=== PATIENT | male | born 1960 | race Caucasian/White ===

== ENCOUNTER 2016-11-15 17:10 | Emergency (ER) | payer MEDICARE, MEDICAID ==
[2016-11-15 17:24] VITALS: BP 150/84
[2016-11-15] MEDS ORDERED: Azithromycin TAB* 250 MG PO ONE (18:37)
--- NOTE | 2016-11-15 19:23 | UC ---
Throat Pain/Nasal José Manuel HPI - HPI Summary HPI Summary: TWO DAYS AGO USED QTIP IN RIGHT EAR, FELT PAIN AFTERWARDS. ALSO FOR LAST TWO DAYS HAS HAD SWELLING IN THROAT WITH TENDERNESS IN SWALLOWING. PATIENT IS ABLE TO KEEP FOODS AND LIQUIDS DOWN. - History of Current Complaint Chief Complaint: UCRespiratory Stated Complaint: SINUS/RT EAR PAIN/FEELS LIKE FB THROAT Time Seen by Provider: 11/15/16 17:54 Hx Obtained From: Patient Onset/Duration: Gradual Onset, Lasting Days, Still Present Severity: Mild Pain Intensity: 4 Pain Scale Used: 0-10 Numeric Cough: None Associated Signs & Symptoms: Positive: Dysphagia, Hoarseness - Epiglottits Risk Factors Epiglottis Risk Factors: Negative - Allergies/Home Medications Allergies/Adverse Reactions: Allergies Allergy/AdvReac Type Severity Reaction Status Date / Time Penicillins [PCN] Allergy Mild Rash Verified 11/15/16 17:23 Warfarin [From Coumadin] Allergy Mild Rash Verified 11/15/16 17:23 Home Medications: Home Medications FLUoxetine CAP* [PROzac CAP*] 60 mg PO DAILY 11/15/16 [History Confirmed ] PMH/Surg Hx/FS Hx/Imm Hx Previously Healthy: Yes Endocrine History Of: Reports: Diabetes - but now controlled with diet Cardiovascular History Of: Reports: Hypertension - ON MEDS Denies: Cardiac Disorders, Pacemaker/ICD Respiratory History Of: Denies: Asthma GI/ History Of: Reports: Renal Disease Cancer History Of: Denies: Prostate Cancer - Surgical History Surgical History: Yes Surgery Procedure, Year, and Place: KIDNEY [place]. cholecystectomy, hernia repair, appy, neck sx - Family History Known Family History: Negative: Respiratory Disease - Social History Occupation: Employed Full-time Lives: With Family Alcohol Use: None Substance Use Type: None Smoking Status (MU): Former Smoker Type: Cigarettes Have You Smoked in the Last Year: No When Did the Patient Quit Smoking/Using Tobacco: 12-13 years ago Review of Systems Constitutional: Negative Skin: Negative Eyes: Negative ENT: Sore Throat, Ear Ache Respiratory: Negative Cardiovascular: Negative Gastrointestinal: Negative Genitourinary: Negative Motor: Negative Neurovascular: Negative Musculoskeletal: Negative Neurological: Negative Psychological: Negative All Other Systems Reviewed And Are Negative: Yes Physical Exam Triage Information Reviewed: Yes Appearance: Well-Appearing, No Pain Distress, Well-Nourished Vital Signs: Initial Vital Signs Temp 97.5 F 11/15/16 17:18 Pulse 78 11/15/16 17:18 Resp 16 11/15/16 17:18 BP 150/84 11/15/16 17:18 Pulse Ox 97 11/15/16 17:18 Vital Signs Reviewed: Yes Eye Exam: Normal Eyes: Positive: Conjunctiva Clear ENT: Positive: Pharynx normal, TM dull, Other: - CERUMEN IMPACTION RIGHT EAR Dental: Positive: Cervical Lymphadenopathy - ANTERIOR CERVIAL LN BILATERALLY Neck: Positive: Supple, Tenderness @ - ANT CERVICAL LN BILATERALLY, Enlarged Nodes @ - ANTERIOR CERVICAL LN BILATERALLY Respiratory Exam: Normal Respiratory: Positive: Chest non-tender, Lungs clear, Normal breath sounds, No respiratory distress, No accessory muscle use Cardiovascular Exam: Normal Cardiovascular: Positive: RRR, No Murmur, Pulses Normal, Brisk Capillary Refill Abdominal Exam: Normal Abdomen Description: Positive: Nontender, No Organomegaly Musculoskeletal Exam: Normal Musculoskeletal: Positive: Strength Intact, ROM Intact, No Edema Neurological Exam: Normal Psychological Exam: Normal Psychological: Positive: Normal Response To Family Skin Exam: Normal Throat Pain/Nasal Course/Dx - Differential Dx/Diagnosis Differential Diagnosis/HQI/PQRI: Otitis Media, Pharyngitis, Sinusitis, Tonsillitis, URI Provider Diagnoses: RIGHT CERUMEN IMPACTION. PHAYNGITIS/CERVICAL LYMPHADENOPATHY Discharge - Discharge Plan Condition: Stable Disposition: HOME Prescriptions: Azithromycin TAB* [Zithromax TAB (Z-FLETCHER) 250 mg #6 tabs] 250 mg PO DAILY #4 tab Patient Education Materials: Sinusitis (ED), Cerumen Impaction (ED), Lymphadenopathy (ED) Referrals: Mk Miller MD [Primary Care Provider] -
== END 2016-11-15 18:49 | disposition home or self-care (01) ==
LOC: UCCORT 17:10
DX: H61.21 Impacted cerumen, right ear (principal); J02.9 Acute pharyngitis, unspecified; R59.1 Generalized enlarged lymph nodes; Z88.0 Allergy status to penicillin; Z88.8 Allergy status to other drugs, medicaments and biological substances; Z87.891 Personal history of nicotine dependence
CPT/HCPCS: 99213; A9270-GY; G0463

== ENCOUNTER 2017-02-28 20:32 | Emergency (ER) | payer MEDICARE, MEDICAID ==
[2017-02-28 20:51] VITALS: BP 129/78
--- NOTE | 2017-02-28 20:59 | UC ---
Respiratory Complaint HPI - HPI Summary HPI Summary: "Cough sudden onset today, Head congestion, sore throat ". Sx just started a few hours ago. dry cough. no congestion. no sinus pain. no fever. no wheezing. stopped smoking 14 yrs ago. no copd. - History of Current Complaint Chief Complaint: UCRespiratory Stated Complaint: UPPER RESPIRATORY Time Seen by Provider: 02/28/17 20:57 - Allergies/Home Medications Allergies/Adverse Reactions: Allergies Allergy/AdvReac Type Severity Reaction Status Date / Time Penicillins [PCN] Allergy Mild Rash Verified 02/28/17 20:51 Warfarin [From Coumadin] Allergy Mild Rash Verified 02/28/17 20:51 PMH/Surg Hx/FS Hx/Imm Hx Previously Healthy: Yes Cardiovascular History: Hypertension GI/ History: Renal Disease - solitary kidney, gout. Psychological History: Anxiety - Surgical History Surgical History: Yes Surgery Procedure, Year, and Place: KIDNEY [place]. cholecystectomy, hernia repair, appy, neck sx - Family History Known Family History: Negative: Respiratory Disease - Social History Alcohol Use: None Substance Use Type: None Smoking Status (MU): Former Smoker Type: Cigarettes Have You Smoked in the Last Year: No When Did the Patient Quit Smoking/Using Tobacco: 12-13 years ago Review of Systems Constitutional: Negative Skin: Negative Eyes: Negative ENT: Negative Respiratory: Cough Cardiovascular: Negative Gastrointestinal: Negative Genitourinary: Negative Motor: Negative Neurovascular: Negative Musculoskeletal: Negative Neurological: Negative Psychological: Negative All Other Systems Reviewed And Are Negative: Yes Physical Exam Triage Information Reviewed: Yes Appearance: Well-Appearing, No Pain Distress, Well-Nourished Vital Signs: Initial Vital Signs Temp 98.4 F 02/28/17 20:43 Pulse 88 02/28/17 20:43 Resp 18 02/28/17 20:43 BP 129/78 02/28/17 20:43 Pulse Ox 98 02/28/17 20:43 Vital Signs Reviewed: Yes Eye Exam: Normal ENT Exam: Normal ENT: Positive: Pharynx normal, TMs normal, Other: - no frontal or maxillary tenderness. Negative: Tonsillar swelling, Tonsillar exudate, Muffled/hoarse voice Neck exam: Normal Neck: Positive: Supple, Nontender, No Lymphadenopathy Respiratory Exam: Normal Respiratory: Positive: Chest non-tender, Lungs clear, Normal breath sounds, No respiratory distress, No accessory muscle use. Negative: Crackles, Rhonchi, Stridor, Wheezing Cardiovascular Exam: Normal Cardiovascular: Positive: RRR, No Murmur, Pulses Normal, Brisk Capillary Refill Abdominal Exam: Normal Musculoskeletal Exam: Normal Neurological Exam: Normal Psychological Exam: Normal Skin Exam: Normal UC Diagnostic Evaluation - Laboratory O2 Sat by Pulse Oximetry: 98 Respiratory Course/Dx - Differential Dx/Diagnosis Differential Diagnosis/HQI/PQRI: Bronchitis, Lower Resp Infection, Sinusitis, Other Provider Diagnoses: Viral URI Discharge - Discharge Plan Condition: Stable Disposition: HOME Patient Education Materials: Viral Syndrome (ED) Referrals: Mk Miller MD [Primary Care Provider] - 3 Days Additional Instructions: There are no signs of bacterial infection at this time. Drink lots of fluid and rest.
== END 2017-02-28 21:23 | disposition home or self-care (01) ==
LOC: UCCORT 20:32
DX: J06.9 Acute upper respiratory infection, unspecified (principal); Z88.0 Allergy status to penicillin; Z88.8 Allergy status to other drugs, medicaments and biological substances; Z87.891 Personal history of nicotine dependence
CPT/HCPCS: 99211; G0463

== ENCOUNTER 2017-03-02 12:12 | Emergency (ER) | payer MEDICARE, MEDICAID ==
[2017-03-02 12:59] VITALS: BP 101/68
--- NOTE | 2017-03-02 15:01 | UC ---
Respiratory Complaint HPI - HPI Summary HPI Summary: Patient is a 57yo M with a history of sinusitis presents with 4 day history of worsening sinus pressure, pain, RUVALCABA, rhinorrhea and cough with production. He denies SOB or chest pain or pressure. He wears a CPAP and cough is productive with green sputum and worse during the morning and late at night. Worse with recumbent position and better with orthostasis. Patient has a history of kidney CA with nephrectomy. He is being followed for symptoms. - History of Current Complaint Chief Complaint: UCRespiratory Stated Complaint: SINUS PRESSURE,SORE THROAT Time Seen by Provider: 03/02/17 12:35 Hx Obtained From: Patient Onset/Duration: Sudden Onset Timing: Constant Severity Initially: Moderate Severity Currently: Moderate Pain Intensity: 6 Pain Scale Used: 0-10 Numeric Character: Cough: Nonproductive Alleviating Factors: Upright Position Associated Signs And Symptoms: Positive: URI, Nasal Congestion, Hoarseness, Sinus Discomfort - Risk Factors Pulmonary Embolism Risk Factors: Negative Cardiac Risk Factors: Negative Pseudomonas Risk Factors: Bronchiectasis Tuberculosis Risk Factors: Negative - Allergies/Home Medications Allergies/Adverse Reactions: Allergies Allergy/AdvReac Type Severity Reaction Status Date / Time Penicillins [PCN] Allergy Mild Rash Verified 03/02/17 12:52 Warfarin [From Coumadin] Allergy Mild Rash Verified 03/02/17 12:52 Amoxicillin Allergy Blisters Verified 03/02/17 13:40 Home Medications: Home Medications Testosterone [EC-Rx Testosterone 0.2%] 0.2 % TD DAILY 03/02/17 [History Confirmed 03/02/17] PMH/Surg Hx/FS Hx/Imm Hx Previously Healthy: No - kidney CA - Surgical History Surgical History: Yes Surgery Procedure, Year, and Place: KIDNEY [place]. cholecystectomy, hernia repair, appy, neck sx - Family History Known Family History: Negative: Respiratory Disease - Social History Occupation: Employed Full-time Lives: With Family Alcohol Use: None Substance Use Type: None Smoking Status (MU): Former Smoker Type: Cigarettes Have You Smoked in the Last Year: No When Did the Patient Quit Smoking/Using Tobacco: 14 years ago Review of Systems Constitutional: Negative ENT: Sore Throat, Ear Ache, Nasal Discharge Respiratory: Cough Cardiovascular: Negative Gastrointestinal: Negative Motor: Negative Neurovascular: Negative Musculoskeletal: Negative Neurological: Negative All Other Systems Reviewed And Are Negative: Yes Physical Exam Triage Information Reviewed: Yes Appearance: Well-Appearing, No Pain Distress, Well-Nourished Vital Signs: Initial Vital Signs Temp 99.9 F 03/02/17 12:53 Pulse 88 03/02/17 12:53 Resp 20 03/02/17 12:53 BP 101/68 03/02/17 12:53 Pulse Ox 98 03/02/17 12:53 Vital Signs Reviewed: Yes Eye Exam: Normal Eyes: Positive: Conjunctiva Clear ENT: Positive: Pharynx normal, Nasal congestion, Nasal drainage Dental Exam: Normal Neck exam: Normal Neck: Positive: Supple, No Lymphadenopathy Respiratory Exam: Normal Respiratory: Positive: Chest non-tender, Lungs clear Cardiovascular Exam: Normal Cardiovascular: Positive: RRR Musculoskeletal Exam: Normal Musculoskeletal: Positive: Strength Intact Psychological Exam: Normal Psychological: Positive: Normal Response To Family Skin Exam: Normal Diagnostic Evaluation - Laboratory O2 Sat by Pulse Oximetry: 98 Respiratory Course/Dx - Course Course Of Treatment: Patient presents to with sinus symptoms, pressure and pain. Worse with sleeping and CPAP machine. Hx of sinusitis. Mucous production with cough. Also c/o itchy eyes, and sneezing. Will rx claritin, doxycycline for sinus pressure and pain on percussion as well as Mucinex. Patient agrees with discharge and will follow up as needed. - Differential Dx/Diagnosis Differential Diagnosis/HQI/PQRI: Asthma, Laryngitis, Lower Resp Infection, Sinusitis Provider Diagnoses: Sinusitis Discharge - Discharge Plan Condition: Stable Disposition: HOME Prescriptions: DOXYcycline CAP(*) [DOXYcycline 100MG CAP(*)] 100 mg PO BID #20 cap Loratadine [Claritin 10 MG CAP] 10 mg PO DAILY #15 cap guaiFENesin ER TAB [Mucinex*] 600 mg PO BID #20 tab.er Patient Education Materials: Sinusitis (ED), Warm Compress or Soak (ED) Referrals: Mk Miller MD [Primary Care Provider] - Additional Instructions: Follow up with PCP Augmentin twice daily for 10 days Claritin during the day until symptoms resolve Flonase will help symptoms Mucinex twice daily
== END 2017-03-02 13:49 | disposition home or self-care (01) ==
LOC: UCCORT 12:12
DX: J01.90 Acute sinusitis, unspecified (principal); Z87.891 Personal history of nicotine dependence; Z85.528 Personal history of other malignant neoplasm of kidney; Z90.5 Acquired absence of kidney
CPT/HCPCS: 99212; G0463

== ENCOUNTER 2017-09-14 10:02 | Emergency (ER) | payer MEDICARE, MEDICAID ==
[2017-09-14 10:24] VITALS: BP 135/73
--- NOTE | 2017-09-14 10:56 | UC ---
Hand/Wrist HPI - HPI Summary HPI Summary: 57 yo gentleman c/o approx 2 months ongoing L thumb pain. Initial wounding event attributes to an injury at that time, son accidently hit dorsal proximal thumb with hammer. However, he notes that lately he has been waking up with both hands painful in the morning. No p/d/w. Hurts to fully abduct, extend, and flex to full "ok" sign. No current redness / swelling c/w opposite thumb. Pt is R handed. Works a lot with hands. Pain is worse at night, better with elevation. Does occasionally drop things. No neck c/o's. - History Of Current Complaint Chief Complaint: UCUpperExtremity Stated Complaint: LEFT THUMB INJ Time Seen by Provider: 09/14/17 10:36 Hx Obtained From: Patient - Allergies/Home Medications Allergies/Adverse Reactions: Allergies Allergy/AdvReac Type Severity Reaction Status Date / Time Penicillins [PCN] Allergy Mild Rash Verified 09/14/17 10:24 Warfarin [From Coumadin] Allergy Mild Rash Verified 09/14/17 10:24 Amoxicillin Allergy Blisters Verified 09/14/17 10:24 PMH/Surg Hx/FS Hx/Imm Hx Previously Healthy: Yes - Surgical History Surgical History: Yes Surgery Procedure, Year, and Place: KIDNEY [place]. cholecystectomy, hernia repair, appy, neck sx - Family History Known Family History: Negative: Respiratory Disease - Social History Alcohol Use: None Substance Use Type: None Smoking Status (MU): Former Smoker Type: Cigarettes Have You Smoked in the Last Year: No When Did the Patient Quit Smoking/Using Tobacco: 14 years ago - Immunization History Most Recent Influenza Vaccination: CURRENT 2016/2017 Review of Systems Constitutional: Negative Skin: Negative Eyes: Negative ENT: Negative Respiratory: Negative Cardiovascular: Negative Gastrointestinal: Negative Genitourinary: Negative Motor: Other - see hpi Neurovascular: Negative Musculoskeletal: Other: - see hpi Neurological: Negative Psychological: Negative Is Patient Immunocompromised?: No All Other Systems Reviewed And Are Negative: Yes Physical Exam Triage Information Reviewed: Yes Appearance: Well-Nourished Vital Signs: Initial Vital Signs Temp 98.3 F 09/14/17 10:20 Pulse 76 09/14/17 10:20 Resp 18 09/14/17 10:20 BP 135/73 09/14/17 10:20 Pulse Ox 100 09/14/17 10:20 Vital Signs Reviewed: Yes Eye Exam: Normal - general nad, detail exam not done ENT Exam: Normal - general nad, detail exam not done Neck exam: Normal - nad Respiratory Exam: Normal - general nad, detail exam not done. no tachypnea, no dyspnea. Cardiovascular Exam: Normal - general nad, detail exam not done. good color, non -diaphoretic. VSS, heart rate regular. Abdominal Exam: Normal - general nad, detail exam not done. sitting up without difficulty. Musculoskeletal Exam: Other - see below Neurological Exam: Normal - grossly nonfocal. Distal sensation LT present x 5 digits L H. Able to move hand and wrist in all directions. Straightens elbow ok. Moves shoulder ok. R/U pulses 2+ equal bilat. No rash visible or reported. CR good distal L and R hand. Tender abida thenar eminence. "ok" painful. Psychological Exam: Normal - conversing easily and appropriately. Skin Exam: Normal Hand/Wrist Course/Dx - Course Course Of Treatment: Reviewed xray reports with pt. Crush injury hx, but current s/sx are suspicious for tendonopathy. Pain timing and c/o dropping objects is suspicious for early neuropathy ex CTS. D/w pt, he reports + fam hx of such. Will f/u Dr. Miller, may benefit from EMG. Thumb spica for comfort. Reviewed med hx with pt. In observation of single kidney, rx ibuprofen only bid. D/w pt. half-way nsaid (if or how long) would best be determined via pcp. Questions as posed answered to the best of my ability. - Differential Dx/Diagnosis Provider Diagnoses: Crush injury. Tendonitis. Consider early CTS Discharge - Discharge Plan Condition: Stable Disposition: HOME Patient Education Materials: Crush Injury (ED), Tendinitis (ED) Referrals: Mk Miller MD [Primary Care Provider] -
--- NOTE | 2017-09-14 11:05 | RAD ---
HISTORY: Left hand pain, crush injury to the thumb, subacute COMPARISONS: None VIEWS: 7, Frontal, lateral, and oblique views of the left hand and of the first digit of the left hand FINDINGS: BONE DENSITY: Normal. BONES: There is no displaced fracture. JOINTS: There is no arthropathy. ALIGNMENT: There is no dislocation. SOFT TISSUES: Unremarkable. OTHER FINDINGS: None. IMPRESSION: NO ACUTE OSSEOUS INJURY. IF SYMPTOMS PERSIST, RECOMMEND REPEAT IMAGING.
== END 2017-09-14 11:53 | disposition home or self-care (01) ==
LOC: UCCORT 10:02
DX: S67.02XA Crushing injury of left thumb, initial encounter (principal); X58.XXXA Exposure to other specified factors, initial encounter; Y92.9 Unspecified place or not applicable; M77.9 Enthesopathy, unspecified; G56.02 Carpal tunnel syndrome, left upper limb; Z88.3 Allergy status to other anti-infective agents; Z88.0 Allergy status to penicillin; Z85.528 Personal history of other malignant neoplasm of kidney; Z90.49 Acquired absence of other specified parts of digestive tract; Z87.891 Personal history of nicotine dependence
CPT/HCPCS: 99213; G0463

== ENCOUNTER 2017-10-19 11:05 | Emergency (ER) | payer MEDICARE, MEDICAID ==
[2017-10-19 11:39] VITALS: BP 130/72
--- NOTE | 2017-10-19 11:47 | UC ---
Respiratory Complaint HPI - HPI Summary HPI Summary: sinus pain and pressure x 1 week + nasal congestion , PND , cough , no fever, no chills - History of Current Complaint Chief Complaint: UCGeneralIllness Stated Complaint: SINUS/FLU SYMPTOMS Time Seen by Provider: 10/19/17 11:40 Hx Obtained From: Patient Onset/Duration: Gradual Onset, Lasting Days - 7, Still Present Timing: Constant Severity Initially: Moderate Severity Currently: Moderate Character: Cough: Productive Aggravating Factors: Exertion, Deep Breaths Associated Signs And Symptoms: Positive: Chills, URI, Nasal Congestion, Sinus Discomfort. Negative: Fever, Dizziness, Calf Pain, Calf Swelling - Allergies/Home Medications Allergies/Adverse Reactions: Allergies Allergy/AdvReac Type Severity Reaction Status Date / Time Penicillins [PCN] Allergy Mild Rash Verified 10/19/17 11:39 Warfarin [From Coumadin] Allergy Mild Rash Verified 10/19/17 11:39 Amoxicillin Allergy Blisters Verified 10/19/17 11:39 PMH/Surg Hx/FS Hx/Imm Hx Endocrine History: Diabetes Cardiovascular History: Hypertension Cancer History: Other - renal cancer Other Cancer History: renal cancer - Surgical History Surgical History: Yes Surgery Procedure, Year, and Place: KIDNEY [place]. cholecystectomy, hernia repair, appy, neck sx - Family History Known Family History: Negative: Respiratory Disease - Social History Alcohol Use: None Substance Use Type: None Smoking Status (MU): Former Smoker Type: Cigarettes Have You Smoked in the Last Year: No When Did the Patient Quit Smoking/Using Tobacco: 14 years ago - Immunization History Most Recent Influenza Vaccination: CURRENT 2016/2017 Review of Systems Constitutional: Chills Skin: Negative Eyes: Negative ENT: Sore Throat, Nasal Discharge Respiratory: Cough Cardiovascular: Negative Gastrointestinal: Negative Is Patient Immunocompromised?: No All Other Systems Reviewed And Are Negative: Yes Physical Exam Triage Information Reviewed: Yes Appearance: Well-Appearing, No Pain Distress, Obese Vital Signs: Initial Vital Signs Temp 97.4 F 10/19/17 11:33 Pulse 98 10/19/17 11:33 Resp 18 10/19/17 11:33 BP 130/72 10/19/17 11:33 Pulse Ox 98 10/19/17 11:33 Vital Signs Reviewed: Yes Eyes: Positive: Conjunctiva Clear ENT: Positive: Normal ENT inspection, Hearing grossly normal, Pharyngeal erythema, Nasal drainage, TMs normal, Sinus tenderness Neck exam: Normal Neck: Positive: Supple, Nontender, No Lymphadenopathy Respiratory: Positive: Chest non-tender, Lungs clear, Normal breath sounds, No respiratory distress Cardiovascular: Positive: RRR, No Murmur, Pulses Normal UC Diagnostic Evaluation - Laboratory O2 Sat by Pulse Oximetry: 98 Respiratory Course/Dx - Differential Dx/Diagnosis Provider Diagnoses: sinusitis Discharge - Discharge Plan Condition: Stable Disposition: HOME Prescriptions: Azithromycin TAB* [Zithromax TAB (Z-FLETCHER) 250 mg #6 tabs] 2 tab PO .TODAY, THEN 1 DAILY #1 fletcher Patient Education Materials: Sinusitis (ED) Referrals: Mk Miller MD [Primary Care Provider] - If Needed
== END 2017-10-19 11:53 | disposition home or self-care (01) ==
LOC: UCCORT 11:05
DX: J32.9 Chronic sinusitis, unspecified (principal); Z87.891 Personal history of nicotine dependence
CPT/HCPCS: 99212; G0463

== ENCOUNTER 2017-12-24 19:32 | Emergency (ER) | payer MEDICARE, MEDICAID ==
[2017-12-24 21:34] VITALS: BP 142/76
--- NOTE | 2017-12-24 21:54 | UC ---
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 he has had many sinus infections and sx are consistent. had same sx ~ 1 mo ago and never felt like he got full relief after using zpack. PCN allergy. no cough or wheezing. temp 101 last night. no wheezing. couldnt get warm last night. - History of Current Complaint Chief Complaint: UCGeneralIllness Stated Complaint: SINUS COMPLAINT Time Seen by Provider: 12/24/17 21:36 Pain Intensity: 5 - Allergies/Home Medications Allergies/Adverse Reactions: Allergies Allergy/AdvReac Type Severity Reaction Status Date / Time MS Penicillins [PCN] Allergy Mild Rash Verified 10/19/17 11:39 MS Warfarin [From Coumadin] Allergy Mild Rash Verified 10/19/17 11:39 MS Amoxicillin [Amoxicillin] Allergy Blisters Verified 10/19/17 11:39 PMH/Surg Hx/FS Hx/Imm Hx Previously Healthy: Yes Psychological History: Anxiety, Depression - Surgical History Surgical History: Yes Surgery Procedure, Year, and Place: KIDNEY [place]. cholecystectomy, hernia repair, appy, neck sx - Family History Known Family History: Negative: Respiratory Disease - Social History Alcohol Use: None Substance Use Type: None Smoking Status (MU): Former Smoker Type: Cigarettes Have You Smoked in the Last Year: No When Did the Patient Quit Smoking/Using Tobacco: 14 years ago - Immunization History Most Recent Influenza Vaccination: CURRENT 2016/2017 Review of Systems Constitutional: Chills Skin: Negative Eyes: Negative ENT: Sinus Congestion, Sinus Pain/Tenderness Respiratory: Negative Cardiovascular: Negative Gastrointestinal: Negative Genitourinary: Negative Motor: Negative Neurovascular: Negative Musculoskeletal: Negative Neurological: Negative Psychological: Negative Is Patient Immunocompromised?: No All Other Systems Reviewed And Are Negative: Yes Physical Exam Triage Information Reviewed: Yes Appearance: Well-Appearing, Well-Nourished, Pain Distress - mild Vital Signs: Initial Vital Signs Temp 98.5 F 12/24/17 21:29 Pulse 77 12/24/17 21:29 Resp 18 12/24/17 21:29 BP 142/76 12/24/17 21:29 Pulse Ox 99 12/24/17 21:29 Vital Signs Reviewed: Yes Eye Exam: Normal ENT: Positive: Pharyngeal erythema - + PND, no exudate, TMs normal, Sinus tenderness Dental Exam: Normal Neck exam: Normal Neck: Positive: Supple, Nontender, No Lymphadenopathy Respiratory Exam: Normal Respiratory: Positive: Lungs clear, Normal breath sounds, No respiratory distress, No accessory muscle use. Negative: Crackles, Rhonchi, Stridor, Wheezing Cardiovascular Exam: Normal Cardiovascular: Positive: RRR, No Murmur, Pulses Normal, Brisk Capillary Refill Abdomen Description: Positive: Nontender, Soft Musculoskeletal Exam: Normal Neurological Exam: Normal Psychological Exam: Normal Skin Exam: Normal Throat Pain/Nasal Course/Dx - Differential Dx/Diagnosis Differential Diagnosis/HQI/PQRI: Laryngitis, Pharyngitis, Sinusitis Provider Diagnoses: sinusitis Discharge - Sign-Out/Discharge Documenting (check all that apply): Discharge - Discharge Plan Condition: Stable Disposition: HOME Prescriptions: Cefdinir cap (NF) [Cefdinir 300 MG cap (NF)] 300 mg PO BID 10 Days #20 cap Patient Education Materials: Sinusitis (ED) Referrals: Mk Miller MD [Primary Care Provider] - Additional Instructions: -Make sure to take a probiotic daily while on antibiotics to help prevent a potential complication of antibiotic use called c diff. Some well known brands that can be found OTC are florastor, align and allGreenup. Make sure to complete the entire prescription unless advised otherwise by your health care provider. -There is ~ 1% chance of allergic reaction taking the cefdinir having had a penicillin allergy. If you develop any allergic symptoms, you should stop the medicine immediately and call 911. - Billing Disposition and Condition Condition: STABLE Disposition: HOME
== END 2017-12-24 22:06 | disposition home or self-care (01) ==
LOC: UCCORT 19:32
DX: J32.9 Chronic sinusitis, unspecified (principal); Z87.891 Personal history of nicotine dependence; Z88.0 Allergy status to penicillin; Z88.3 Allergy status to other anti-infective agents; Z88.8 Allergy status to other drugs, medicaments and biological substances
CPT/HCPCS: 99212; G0463

== ENCOUNTER 2018-08-30 09:39 | Emergency (ER) | payer MEDICARE, MEDICAID ==
[2018-08-30 10:04] VITALS: BP 122/85
--- NOTE | 2018-08-30 10:22 | UC ---
Throat Pain/Nasal José Manuel HPI - HPI Summary HPI Summary: sinus pain and pressure x 3 days + nasal congestion , pnd no fever, no chills , mild cough - History of Current Complaint Chief Complaint: UCGeneralIllness Stated Complaint: ST,SINUS PRESSURE Time Seen by Provider: 08/30/18 10:15 Hx Obtained From: Patient Onset/Duration: Gradual Onset, Lasting Days - 3, Still Present Severity: Moderate Pain Intensity: 3 Cough: Nonproductive Associated Signs & Symptoms: Positive: Sinus Discomfort, Nasal Discharge. Negative: Fever, Vomiting, Rash - Allergies/Home Medications Allergies/Adverse Reactions: Allergies Allergy/AdvReac Type Severity Reaction Status Date / Time amoxicillin Allergy Blisters Verified 08/30/18 09:59 Penicillins Allergy Rash Verified 08/30/18 09:59 warfarin Allergy Rash Verified 08/30/18 09:59 Home Medications: Home Medications Allopurinol TAB* [Zyloprim 300 MG TAB*] 300 mg PO DAILY 08/30/18 [History Confirmed 08/30/18] Testosterone GEL (NF) [Androgel (NF)] 6.1 gm TOPICAL DAILY 08/30/18 [History Confirmed 08/30/18] PMH/Surg Hx/FS Hx/Imm Hx - Additional Past Medical History Additional PMH: renal carcinoma Endocrine History: Diabetes Cardiovascular History: Hypertension - Surgical History Surgical History: Yes Surgery Procedure, Year, and Place: KIDNEY [place]. cholecystectomy, hernia repair, appy, neck sx - Family History Known Family History: Negative: Respiratory Disease - Social History Alcohol Use: None Substance Use Type: None Smoking Status (MU): Former Smoker Type: Cigarettes Length of Time of Smoking/Using Tobacco: <2 PPD x 28 Years Have You Smoked in the Last Year: No When Did the Patient Quit Smoking/Using Tobacco: ~2002 - Immunization History Most Recent Influenza Vaccination: CURRENT 2016/2017 Review of Systems All Other Systems Reviewed And Are Negative: Yes Constitutional: Positive: Negative Skin: Positive: Negative Eyes: Positive: Negative ENT: Positive: Sore Throat, Nasal Discharge Respiratory: Positive: Cough Cardiovascular: Positive: Negative Gastrointestinal: Positive: Negative Is Patient Immunocompromised?: No Physical Exam Triage Information Reviewed: Yes Appearance: Well-Appearing, No Pain Distress, Obese Vital Signs: Initial Vital Signs Temp 97.8 F 08/30/18 09:57 Pulse 88 08/30/18 09:57 Resp 18 08/30/18 09:57 BP 122/85 08/30/18 09:57 Pulse Ox 99 08/30/18 09:57 Vital Signs Reviewed: Yes Eyes: Positive: Conjunctiva Clear ENT: Positive: Normal ENT inspection, Hearing grossly normal, Pharynx normal, Nasal drainage, TMs normal. Negative: Sinus tenderness Neck: Positive: Supple, Nontender, No Lymphadenopathy Respiratory: Positive: Chest non-tender, Lungs clear, Normal breath sounds Cardiovascular: Positive: RRR, No Murmur, Pulses Normal Skin Exam: Normal Throat Pain/Nasal Course/Dx - Differential Dx/Diagnosis Provider Diagnosis: URI (upper respiratory infection) Discharge - Sign-Out/Discharge Documenting (check all that apply): Patient Departure All imaging exams completed and their final reports reviewed: No Studies - Discharge Plan Condition: Stable Disposition: HOME Patient Education Materials: Upper Respiratory Infection (DC) Referrals: Mk Miller MD [Primary Care Provider] - If Needed - Billing Disposition and Condition Condition: STABLE Disposition: Home
== END 2018-08-30 10:24 | disposition home or self-care (01) ==
LOC: UCCORT 09:39
DX: J06.9 Acute upper respiratory infection, unspecified (principal); Z88.8 Allergy status to other drugs, medicaments and biological substances; Z87.891 Personal history of nicotine dependence; Z88.0 Allergy status to penicillin
CPT/HCPCS: 99211; G0463

== ENCOUNTER 2019-02-24 17:36 | Emergency (ER) | payer MEDICARE, MEDICAID ==
[2019-02-24 17:48] VITALS: BP 138/80
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
== END 2019-02-24 18:47 | disposition home or self-care (01) ==
LOC: UCCORT 17:36
DX: L98.9 Disorder of the skin and subcutaneous tissue, unspecified (principal); I10 Essential (primary) hypertension; Z87.891 Personal history of nicotine dependence; Z88.1 Allergy status to other antibiotic agents; Z88.0 Allergy status to penicillin; Z88.8 Allergy status to other drugs, medicaments and biological substances
CPT/HCPCS: 99211; G0463

== ENCOUNTER 2019-04-08 16:55 | Emergency (ER) | payer MEDICARE, MEDICAID ==
[2019-04-08 17:09] VITALS: BP 148/87
--- NOTE | 2019-04-08 17:24 | UC ---
Throat Pain/Nasal José Manuel HPI - HPI Summary HPI Summary: Ill for the past 3 days with cough, sore throat and fever. Wears CPAP at night, stopped smoking 14 years ago. Sore throat worse in the morning and then is better throughout the day and worse at night. Cough is non-productive. States he has some chest "burning" only when he is coughing. - History of Current Complaint Chief Complaint: UCGeneralIllness Stated Complaint: SINUS' Time Seen by Provider: 04/08/19 17:04 Hx Obtained From: Patient Onset/Duration: Gradual Onset Severity: Mild Pain Intensity: 0 Cough: Nonproductive Associated Signs & Symptoms: Positive: Fever - Allergies/Home Medications Allergies/Adverse Reactions: Allergies Allergy/AdvReac Type Severity Reaction Status Date / Time amoxicillin Allergy Blisters Verified 02/24/19 17:49 Penicillins Allergy Rash Verified 02/24/19 17:49 warfarin Allergy Rash Verified 02/24/19 17:49 PMH/Surg Hx/FS Hx/Imm Hx Previously Healthy: Yes Endocrine History: Diabetes Cardiovascular History: Hypertension Cancer History: Other - renal cancer - Surgical History Surgical History: Yes Surgery Procedure, Year, and Place: KIDNEY CA, right kidney removed, cholecystectomy, hernia repair, appy, neck sx. hammer toes - Family History Known Family History: Positive: Non-Contributory Negative: Respiratory Disease - Social History Lives: With Family Alcohol Use: Rare Substance Use Type: None Smoking Status (MU): Former Smoker Type: Cigarettes Length of Time of Smoking/Using Tobacco: <2 PPD x 28 Years Have You Smoked in the Last Year: No When Did the Patient Quit Smoking/Using Tobacco: ~2002 - Immunization History Most Recent Influenza Vaccination: CURRENT Review of Systems All Other Systems Reviewed And Are Negative: Yes Constitutional: Positive: Fever ENT: Positive: Sore Throat Respiratory: Positive: Cough - Non-productive Is Patient Immunocompromised?: No Physical Exam Triage Information Reviewed: Yes Appearance: Well-Appearing, No Pain Distress, Well-Nourished Vital Signs: Initial Vital Signs Temp 98.2 F 04/08/19 17:03 Pulse 85 04/08/19 17:03 Resp 16 04/08/19 17:03 BP 148/87 04/08/19 17:03 Pulse Ox 98 04/08/19 17:03 Vital Signs Reviewed: Yes Eyes: Positive: Conjunctiva Clear ENT: Positive: Hearing grossly normal, Pharyngeal erythema, TMs normal, Uvula midline. Negative: Tonsillar swelling, Tonsillar exudate, Trismus, Muffled voice, Hoarse voice Neck: Positive: Supple, Nontender, No Lymphadenopathy Respiratory: Positive: Lungs clear, Normal breath sounds, No respiratory distress, No accessory muscle use Cardiovascular: Positive: RRR, No Murmur, Pulses Normal, Brisk Capillary Refill Musculoskeletal: Positive: Strength Intact, ROM Intact, No Edema Neurological: Positive: Alert, Muscle Tone Normal Psychological Exam: Normal Skin Exam: Normal Throat Pain/Nasal Course/Dx - Course Course Of Treatment: Rapid strep test: negative CXR: REPORT: Elevated lung volumes and mild prominence of the interstitial markings. Small oblique linear density at the LEFT lung base is unchanged compared with a chest radiograph from May 03, 2014 without concern. No suspicious focal pulmonary lesion, compelling alveolar consolidation, pleural effusion, pneumothorax. The heart, pulmonary vasculature, and mediastinal contours are unremarkable. Anterior cervical fusion hardware. IMPRESSION: #. Stigmata of obstructive lung disease. No acute pulmonary or cardiac process evident. - Differential Dx/Diagnosis Provider Diagnosis: Allergic rhinitis, Bronchitis Discharge - Sign-Out/Discharge Documenting (check all that apply): Patient Departure All imaging exams completed and their final reports reviewed: Yes - Discharge Plan Condition: Fair Disposition: HOME Prescriptions: Azithromyxin FLETCHER (NF) [Z-Fletcher (Zithromax) 250 mg tabs #6] 2 tab PO .TODAY, THEN 1 DAILY #6 tab Patient Education Materials: Allergic Rhinitis (DC), Acute Bronchitis (ED) Referrals: Mk Miller MD [Primary Care Provider] - Additional Instructions: Increase fluids, follow up with your primary care provider in 3-4 days if no improvement. - Billing Disposition and Condition Condition: FAIR Disposition: Home
[2019-04-08] MEDS ORDERED: Azithromycin TAB* 250 MG PO ONE (18:06)
== END 2019-04-08 18:09 | disposition home or self-care (01) ==
LOC: UCCORT 16:55
DX: J30.9 Allergic rhinitis, unspecified (principal); J40 Bronchitis, not specified as acute or chronic; Z87.891 Personal history of nicotine dependence; E11.9 Type 2 diabetes mellitus without complications; I10 Essential (primary) hypertension; Z85.528 Personal history of other malignant neoplasm of kidney
CPT/HCPCS: 71046; 87651; 99212; A9270-GY; G0463

== ENCOUNTER 2019-06-25 10:46 | Emergency (ER) | payer MEDICARE, MEDICAID ==
--- OUTSIDE RECORDS SUMMARY | 2019-06-25 11:14 | XMS REPORT | Summary of Care ---
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 Personal/Family 1960 [address] ([address] [phone] [place], [place] (Work) [id number] documented as of this encounter
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
[2019-06-25 11:35] VITALS: BP 98/79
--- NOTE | 2019-06-25 12:00 | UC ---
Skin Complaint HPI - HPI Summary HPI Summary: 2 days of R cheek swelling and burning, noticed some blisters. He scratched them off. R lower lid swelling. Has had shingles before. He started a new med 2 days ago as well: METFORMIN TYPE MED. - History of Current Complaint Chief Complaint: UCGeneralIllness Time Seen by Provider: 06/25/19 11:53 Stated Complaint: RT EYE COMPLAINT Hx Obtained From: Patient Pain Intensity: 0 Aggravating Factor(s): Touch Alleviating Factor(s): Nothing - Allergy/Home Medications Allergies/Adverse Reactions: Allergies Allergy/AdvReac Type Severity Reaction Status Date / Time amoxicillin Allergy Blisters Verified 06/25/19 11:35 Penicillins Allergy Rash Verified 06/25/19 11:35 warfarin Allergy Rash Verified 06/25/19 11:35 Home Medications: Home Medications Formentin 06/25/19 [History] PMH/Surg Hx/FS Hx/Imm Hx Previously Healthy: Yes Endocrine History: Diabetes Cardiovascular History: Hypertension - Surgical History Surgical History: Yes Surgery Procedure, Year, and Place: KIDNEY CA, right kidney removed, cholecystectomy, hernia repair, appy, neck sx. hammer toes - Family History Known Family History: Positive: Non-Contributory Negative: Respiratory Disease - Social History Alcohol Use: Rare Substance Use Type: None Smoking Status (MU): Former Smoker Type: Cigarettes Length of Time of Smoking/Using Tobacco: <2 PPD x 28 Years Have You Smoked in the Last Year: No When Did the Patient Quit Smoking/Using Tobacco: ~2002 - Immunization History Most Recent Influenza Vaccination: CURRENT 2016/2017 Review of Systems All Other Systems Reviewed And Are Negative: Yes Constitutional: Negative: Fever, Chills, Fatigue Skin: Positive: Rash - R CHEEK SWELLING, REDNESS W/ SCAB, SOME PAIN. Eyes: Negative: Other - DENIES VISION CHANGES. Respiratory: Positive: Negative Cardiovascular: Positive: Negative Physical Exam Triage Information Reviewed: Yes Appearance: Well-Appearing Vital Signs: Initial Vital Signs Temp 98.6 F 06/25/19 11:28 Pulse 74 06/25/19 11:28 Resp 16 06/25/19 11:28 BP 98/79 06/25/19 11:28 Pulse Ox 99 06/25/19 11:28 Vital Signs Reviewed: Yes ENT: Positive: TMs normal Neck: Positive: No Lymphadenopathy Respiratory Exam: Normal Cardiovascular Exam: Normal Neurological: Positive: Alert Skin: Positive: Rashes - R CHEEK HAS ABRASION-LIKE WOUND W/ SOME SUPERFICIAL SWELLING AND DISCHARGE. NO BLISTERS SEEN.. Negative: Significant Lesion(s) - NO SKIN LESIONS ON NOSE OR EYELIDS. Course/Dx - Course Course Of Treatment: Unclear etiology on R cheek as rash started off as blisters but then after he scratched off causing abrasion it has become slightly infected. For now will tx w/ topical antibx and add antiviral for possible shingles; he has had a shingles episode in the past he thinks. There is no nasal or eye involvement at this time. vITALS GOOD. if not improving or worsening he will f/u w pcp. discussed any blurry vision he should be seen immediately. - Differential Diagnoses - Skin Complaint Differential Diagnoses: Abscess, Drug Rash, Impetigo, MRSA, Other - Diagnoses Provider Diagnosis: Skin infection Discharge ED - Sign-Out/Discharge Documenting (check all that apply): Patient Departure All imaging exams completed and their final reports reviewed: No Studies - Discharge Plan Condition: Good Disposition: HOME Prescriptions: Bacitracin OINTMENT FLETCHER* 1 applic TOPICAL BID 10 Days #5 fletcher ValACYclovir (*) [Valtrex 500 mg (*)] 500 mg PO BID 7 Days #14 tab Patient Education Materials: Cellulitis (ED) Referrals: Mk Miller MD [Primary Care Provider] - Additional Instructions: I do not think this is shingles but I can treat you for it . I am treating you for the superficial infection I see today. If no improvement or worsening please see your PCP. - Billing Disposition and Condition Condition: GOOD Disposition: Home
== END 2019-06-25 12:30 | disposition home or self-care (01) ==
LOC: UCCORT 10:46
DX: L08.9 Local infection of the skin and subcutaneous tissue, unspecified (principal); S00.81XA Abrasion of other part of head, initial encounter; H57.89 Other specified disorders of eye and adnexa; I10 Essential (primary) hypertension; E11.9 Type 2 diabetes mellitus without complications; Z88.0 Allergy status to penicillin; Z88.8 Allergy status to other drugs, medicaments and biological substances; Z79.84 Long term (current) use of oral hypoglycemic drugs; Z87.891 Personal history of nicotine dependence; X58.XXXA Exposure to other specified factors, initial encounter; Y92.9 Unspecified place or not applicable
CPT/HCPCS: 99212; G0463

== ENCOUNTER 2021-08-05 09:41 | Inpatient (IN) ==
[~2021-08-05 09:41] MED LIST: Buffered Lidocaine 1% SYRIN 1 ml INTRADERM ONE; Lactated Ringers 1000 ml BAG 1,000 ML IV SCH
[2021-08-05] MEDS ORDERED: Midazolam 2 mg/2 ml VIAL 1 mg/ml 2 ml VIAL (2 mg) ONE (09:47)
[2021-08-05] MEDS ORDERED: Dexamethasone IV 4 MG/ML VIAL 1 ml VIAL ONE (09:47)
[2021-08-05] MEDS ORDERED: Ondansetron 4 mg VIAL 2 MG/ML 2 ml VIAL ONE ×2 (09:47→14:46)
[2021-08-05] MEDS ORDERED: Propofol 10 MG/ML 20 ML BTL ONE (09:47)
[2021-08-05] MEDS ORDERED: fentaNYL 250 mcg/5 ml 50 MCG/ML 5 ml VIAL (250 MCG) ONE (09:49)
[2021-08-05] MEDS ORDERED: Rocuronium 50 mg VIAL 10 mg/ml 5 ml VIAL (50 mg) ONE ×2 (09:49→11:32)
[2021-08-05] MEDS ORDERED: Lidocaine 2% PF 5 ML VIAL ONE ×2 (09:54→14:21)
[2021-08-05] MEDS ORDERED: Heparin 5000 UNITS/ML 1 mL VIAL ONE (10:23)
[2021-08-05] MEDS ORDERED: Clindamycin 900 MG/D5W BAG 900 MG/50 ML BAG IVPB ONE (10:23)
[2021-08-05] MEDS ORDERED: Methylene Blue 0.5 % 50 MG/10 ML AMP IV ONE (10:52)
[2021-08-05] MEDS ORDERED: Lidocaine 1% w EPI 1:100,000 MDV 20 ML VIAL ONE (10:53)
[2021-08-05] MEDS ORDERED: Bupivacaine 0.5% SDV PF 30ML VIAL ONE (10:53)
[2021-08-05] MEDS ORDERED: Phenylephrine IV 10 MG/ML 1 ml VIAL ONE (12:13)
[2021-08-05] MEDS ORDERED: Acetaminophen IV 1 GM/100ML 100 ML IV PRN (13:03)
[2021-08-05] MEDS ORDERED: HYDROmorphone 1 MG/1 ML SYRINGE IV PRN (13:03)
[2021-08-05] MEDS ORDERED: Prochlorperazine 5 mg/ml 2 ml VIAL (10 mg) IV PRN (13:03)
[2021-08-05] MEDS ORDERED: Naloxone 0.4 mg VIAL 0.4 mg/ml 1 ml VIAL IV PRN (13:03)
[2021-08-05] MEDS ORDERED: DiMENhydriNATE IV 50 mg/ml 1 ml VIAL IV PUSH PRN (13:03)
[2021-08-05] MEDS ORDERED: diPHENhydraMINE IV 50 MG/ML 1 ml VIAL (BENADRYL) IV PRN (13:03)
[2021-08-05] MEDS ORDERED: Ondansetron 4 mg VIAL 2 MG/ML 2 ml VIAL IV PRN ×2 (13:03→14:39)
[2021-08-05] MEDS ORDERED: Sugammadex 500 MG/5 ML 5 ml VIAL IV PUSH ONE (13:52)
[2021-08-05] MEDS ORDERED: Acetaminophen IV 1 GM/100ML 100 ML IV ONE (13:55)
[2021-08-05] MEDS ORDERED: HYDROmorphone 1 MG/1 ML SYRINGE IV SLOW PU PRN (14:39)
[2021-08-05] MEDS ORDERED: HYDROmorphone 0.5 MG/0.5 ML SYRINGE IV SLOW PU PRN (14:39)
[2021-08-05] MEDS ORDERED: diPHENhydraMINE IV 50 MG/ML 1 ml VIAL (BENADRYL) SLOW PUSH PRN (14:39)
[2021-08-05] MEDS ORDERED: fentaNYL 100 mcg/2 ml 50 MCG/ML VIAL ONE ×2 (14:45→15:19)
[2021-08-05] MEDS: fentaNYL 100 mcg/2 ml 50 MCG/ML VIAL IV PRN ×2 (14:50→15:20)
[2021-08-05] MEDS ORDERED: DiMENhydriNATE IV 50 mg/ml 1 ml VIAL ONE (15:19)
[2021-08-05] MEDS: Lactated Ringers 1000 ml BAG 1,000 ML IV SCH ×2 (17:39→23:59)
[2021-08-05] MEDS ORDERED: Fluticasone NASAL SPRAY 50MCG 16 gm SPRAY BTL BOTH NARES PRN (21:18)
[2021-08-05] MEDS: Heparin 5000 UNITS/ML 1 mL VIAL SUBCUT SCH (22:48)
[2021-08-05] MEDS: Famotidine IV 10 MG/ML 2 ml VIAL (20 mg) IV SLOW PU SCH (22:50)
[2021-08-06] MEDS: Heparin 5000 UNITS/ML 1 mL VIAL SUBCUT SCH ×2 (05:41→14:02)
[2021-08-06] MEDS: Lactated Ringers 1000 ml BAG 1,000 ML IV SCH ×2 (06:30→14:00)
[2021-08-06] MEDS: Famotidine IV 10 MG/ML 2 ml VIAL (20 mg) IV SLOW PU SCH (09:25)
[2021-08-06 11:53] VITALS: BP 136/84
[2021-08-06] MEDS ORDERED: D5W 1/2 NS KCl 20 meq 1000 ml 1,000 ML IV SCH (18:00)
== END 2021-08-06 16:15 | disposition home or self-care (01) | DRG 621 ==
LOC: AA 09:41 → SSU 14:39
PROVIDERS: ADMIT Surgery; ATTEND Surgery